=== PATIENT | male | born 1935 | race Two or more races ===

== ENCOUNTER 2017-11-11 10:39 | Outpatient (CLI) | payer OTHER ==
[~2017-11-11 10:39] MED LIST: GABAPENTIN300 MG; LOSARTAN POTASS25 MG; PERCOCET 5/3251 TAB; PLAVIX75 MG; SEPTRA DS TABLE1 TAB PO
== END 2017-11-11 10:47 | disposition home or self-care (01) ==
LOC: RAD 10:39
DX: R07.1 Chest pain on breathing (principal)

== ENCOUNTER 2017-11-16 07:15 | Inpatient (IN) | payer OTHER ==
[~2017-11-16] VITALS: Ht 172.7 cm; Wt 59.0 kg
[2017-11-16] MEDS ORDERED: LIRICA PO (09:23)
[2017-11-16] MEDS ORDERED: LOSART PO (09:23)
[2017-11-24] MEDS ORDERED: DOCUSATE SODIU100 MG PO (09:22)
[2017-11-24] MEDS ORDERED: PERCOCET 5-3251 EACH PO (09:24)
[2017-11-24] MEDS ORDERED: CLONAZEPAM1 MG PO (09:24)
== END 2017-11-24 17:23 | DRG 460 ==
LOC: PED 11-23 04:35 → O/R 11-23 04:35 → SURG 11-23 07:00 → PED 11-23 10:17
PROVIDERS: Orthopaedic Surgery Orthopaedic Surgery of the Spine
PROC: 0SG10A0 Fusion of 2 or more Lumbar Vertebral Joints with Interbody Fusion Device, Anterior Approach, Anterior Column, Open Approach (ICD-10-PCS; 2017-11-23)
PROC: 07DS3ZZ Extraction of Vertebral Bone Marrow, Percutaneous Approach (ICD-10-PCS; 2017-11-23)
PROC: 0RG10A0 Fusion of Cervical Vertebral Joint with Interbody Fusion Device, Anterior Approach, Anterior Column, Open Approach (ICD-10-PCS; principal; 2017-11-23 07:00)
DX: M47.12 Other spondylosis with myelopathy, cervical region (principal); M50.022 Cervical disc disorder at C5-C6 level with myelopathy; S14.125D Central cord syndrome at C5 level of cervical spinal cord, subsequent encounter

== ENCOUNTER 2018-02-21 12:33 | Outpatient (CLI) | payer OTHER ==
[~2018-02-21 12:33] MED LIST changes: +CLONAZEPAM1 MG PO; +DOCUSATE SODIU100 MG PO; +LIRICA PO; +LOSART PO; +PERCOCET 5-3251 EACH PO
== END 2018-02-21 12:36 | disposition home or self-care (01) ==
LOC: RAD 12:33
DX: M51.36 Other intervertebral disc degeneration, lumbar region (principal); Z98.1 Arthrodesis status

== ENCOUNTER 2018-05-10 10:36 | Outpatient (CLI) | payer OTHER | END 2018-05-10 15:06 | disposition home or self-care (01) | LOC: RAD 10:36 | DX: N40.0 Benign prostatic hyperplasia without lower urinary tract symptoms (principal); M51.36 Other intervertebral disc degeneration, lumbar region; Z98.1 Arthrodesis status; J90 Pleural effusion, not elsewhere classified; J06.9 Acute upper respiratory infection, unspecified; M25.571 Pain in right ankle and joints of right foot; M16.4 Bilateral post-traumatic osteoarthritis of hip; M12.551 Traumatic arthropathy, right hip; M12.552 Traumatic arthropathy, left hip ==

== ENCOUNTER 2018-05-25 11:16 | Inpatient (IN) | payer OTHER ==
[~2018-05-25] VITALS: Ht 172.7 cm; Wt 59.0 kg
--- NOTE | 2018-05-25 11:35 | NUR ---
PT REFIERE VANESSA TENIDO 6 EPISODIOS DE DIARREA ESTA MADRUGADA, REFIER DEBILIDAD Y MALESTAR EN TODO EL CUERPO. REFIERE DOLOR EN ARTICULACIONES, DOLOR ADBOMINAL Y VANESSA TENIDO 3 EPISODIOS DE VOMITOS ESTA MADRUGADA. PT CON TOS Y EXPECTORACIONES COLOR ELVIN. FAMILIAR REFIERE PT VANESSA TENIDO EPISODIO DE FIEBRE EN EL HOGAR. PT REFIERE SENTIR CONGESTION Y CALAMBRES EN LOS BRAZOS Y PIERNAS.
--- NOTE | 2018-05-25 16:44 | NUR ---
PTE ALERTA Y ORIENTADO X 3 ESFERAS EN KODI CON BARANDAS ELEVADAS,SIN FAMILIAR AL MOMENTO DE LA KAREN,AREA DE VENOPUNCION PATENTE Y NEEL DE EDEMA CON FLUIDOS DE MANTENIEMIENTO CON MTV EL CUAL SE RE-EMPLAZA POR .9NSS @ 125 ML/HR,PTE ESCUPIENDO COFFE GROUND,SE MUEVE EN KODI A AREA DE CHEST PAIN,SE CONECTA A MONITOR CARDIACO Y OXIMETRIA.SE ENTREGA A MS ARELLANO.
== END 2018-06-23 01:26 | disposition expired | DRG 640 ==
LOC: ER 11:16 → ICU-2 20:22 → ICU 05-31 14:42
PROVIDERS: ADMIT Internal Medicine
PROC: 0DH67UZ Insertion of Feeding Device into Stomach, Via Natural or Artificial Opening (ICD-10-PCS; principal; 2018-05-26)
PROC: 3E0G76Z Introduction of Nutritional Substance into Upper GI, Via Natural or Artificial Opening (ICD-10-PCS; 2018-05-26)
PROC: 02HV33Z Insertion of Infusion Device into Superior Vena Cava, Percutaneous Approach (ICD-10-PCS; 2018-05-26)
PROC: BW21ZZZ Computerized Tomography (CT Scan) of Abdomen and Pelvis (ICD-10-PCS; 2018-05-27)
PROC: BW21ZZZ Computerized Tomography (CT Scan) of Abdomen and Pelvis (ICD-10-PCS; 2018-05-30)
PROC: BR29ZZZ Computerized Tomography (CT Scan) of Lumbar Spine (ICD-10-PCS; 2018-05-30)
PROC: 3E0F7GC Introduction of Other Therapeutic Substance into Respiratory Tract, Via Natural or Artificial Opening (ICD-10-PCS; 2018-05-31)
PROC: 4A033R1 Measurement of Arterial Saturation, Peripheral, Percutaneous Approach (ICD-10-PCS; 2018-05-31)
PROC: B246ZZZ Ultrasonography of Right and Left Heart (ICD-10-PCS; 2018-05-31)
PROC: 4A12X4Z Monitoring of Cardiac Electrical Activity, External Approach (ICD-10-PCS; 2018-05-31)
PROC: BR20ZZZ Computerized Tomography (CT Scan) of Cervical Spine (ICD-10-PCS; 2018-06-01)
PROC: 0BH17EZ Insertion of Endotracheal Airway into Trachea, Via Natural or Artificial Opening (ICD-10-PCS; 2018-06-17)
PROC: 5A1955Z Respiratory Ventilation, Greater than 96 Consecutive Hours (ICD-10-PCS; 2018-06-17)
PROC: 30233N1 Transfusion of Nonautologous Red Blood Cells into Peripheral Vein, Percutaneous Approach (ICD-10-PCS; 2018-06-18)
PROC: BT43ZZZ Ultrasonography of Bilateral Kidneys (ICD-10-PCS; 2018-06-21)
DX: E86.0 Dehydration (principal); A41.89 Other specified sepsis; L89.153 Pressure ulcer of sacral region, stage 3; R65.20 Severe sepsis without septic shock; B37.1 Pulmonary candidiasis; J15.8 Pneumonia due to other specified bacteria; M50.022 Cervical disc disorder at C5-C6 level with myelopathy; N17.8 Other acute kidney failure; N18.5 Chronic kidney disease, stage 5; M62.82 Rhabdomyolysis; I13.11 Hypertensive heart and chronic kidney disease without heart failure, with stage 5 chronic kidney disease, or end stage renal disease; J90 Pleural effusion, not elsewhere classified; G12.21 Amyotrophic lateral sclerosis; R33.8 Other retention of urine; S14.125D Central cord syndrome at C5 level of cervical spinal cord, subsequent encounter; D72.828 Other elevated white blood cell count; E87.5 Hyperkalemia; E87.1 Hypo-osmolality and hyponatremia; A08.8 Other specified intestinal infections; D50.8 Other iron deficiency anemias; R09.02 Hypoxemia